=== PATIENT | male | born 1950 | race Caucasian/White ===

== ENCOUNTER 2017-02-12 16:00 | Emergency (ER) | payer BC ==
[2017-02-12 16:53] LABS: Urine Bacteria Absent (Absent); Urine Bilirubin Negative (Negative); Urine Glucose Negative (Negative); Urine Nitrite Negative (Negative)
[2017-02-12] MEDS ORDERED: HYDROmorphone INJ* 1 MG/ML CARPUJECT SYRINGE IV ONE (16:56)
[2017-02-12] MEDS ORDERED: NS 0.9% 1000 ML* 1,000 ML IV ONE (16:56)
[2017-02-12] MEDS ORDERED: Ondansetron INJ* 2 MG/ML VIAL IV ONE (16:56)
[2017-02-12] MEDS ORDERED: Ketorolac INJ* 30 MG/ML 1 ML VIAL IV ONE (16:56)
--- NOTE | 2017-02-12 17:03 | RAD ---
Indication: Left flank pain. CT of the abdomen and pelvis was performed without oral or IV contrast administration. Coronal and sagittal reconstructed images were obtained. Lung bases demonstrate no pleural fluid, nodules or masses. Heart is of normal size without evidence of pericardial effusion. Liver is normal in size. No focal lesions or intrahepatic duct dilatation noted. The common duct is not dilated. The gallbladder is partially contracted with multiple hyperdense lesions consistent with gallstones. The pancreas demonstrates no mass or pancreatic duct dilatation. No adrenal lesions are noted. There is moderate degree of left hydronephrosis and hydroureter. There is calculus in the left distal ureter just adjacent to the ureter ureterovesicular junction measuring up to 4 mm. The right kidney demonstrates no evidence of hydronephrosis or hydroureter. Probable hyperdense cysts noted in the posterior cortex of the left kidney measuring 16 mm. Atherosclerotic aorta is noted. No retroperitoneal or pelvic lymphadenopathy is noted. Diverticulosis without definite evidence of diverticulitis. The colon is filled with stool. The appendix is normal. No hernias are noted. Urinary bladder is nondistended. No pelvic adenopathy is noted. IMPRESSION: LEFT HYDRONEPHROSIS AND HYDROURETER WITH A 4 MM CALCULI IN THE LEFT DISTAL URETER JUST ABOVE THE LEFT URETEROVESICULAR JUNCTION. DIVERTICULOSIS WITHOUT DEFINITE EVIDENCE OF DIVERTICULITIS.
[2017-02-12 17:26] LABS: Hematocrit 43 % (42-52); Hemoglobin 14.3 g/dl (14.0-18.0); Mean Corpuscular HGB Conc 34 g/dl (31-36); Mean Corpuscular Hemoglobin 29 pg (27-31); Mean Corpuscular Volume 86 fL (80-94); Mean Platelet Volume 7 um3 (7.4-10.4); Red Blood Count 4.96 10^6/ul (4.0-5.4); Red Cell Distribution Width 14 % (10.5-15); White Blood Count 9.4 10^3/ul (3.5-10.8)
[2017-02-12 17:44] LABS: Albumin 4.4 g/dL (3.2-5.2); BUN/Creatinine Ratio 16.5 (8-20); C Reactive Protein 2.29 mg/L (< 5.00); Calcium 9.7 mg/dL (8.6-10.3); EGFR African American 77.4 (>60); EGFR Non-African American 60.2 (>60); Globulin 3.1 g/dL (2-4); Potassium 3.3 mmol/L (3.5-5.0); Total Bilirubin 0.7 mg/dL (0.2-1.0); Total Protein 7.5 g/dL (6.4-8.9)
--- NOTE | 2017-02-12 18:17 | ED ---
Angélica Alejandro Edward, scribed for Shane Brannon MD on 02/12/17 at 1621 . GI/ HPI - HPI Summary HPI Summary: 66 y/o male presents to the ED c/o L flank pain radiating to the front of the groin starting two days ago. The pain started as urinary urgency and the need to have a bowel movement. It subsided yesterday morning but came back at night. The pain is present in the ED rated 7/10 at triage. The pain is aggravated with sitting. Denies dysuria. Associated sx: hematuria, states his stool had lots of yellow. - History of Current Complaint Chief Complaint: EDFlankPain Time Seen by Provider: 02/12/17 16:08 Stated Complaint: LEFT FLANK PAIN Hx Obtained From: Patient Onset/Duration: Started Days Ago, Still Present Current Severity: Severe Pain Intensity: 7 Location of Pain: Groin, Flank Associated Signs and Symptoms: Positive: Hematuria, Other: - Stool was yellow. Negative: Dysuria - Allergy/Home Medications Allergies/Adverse Reactions: Allergies Allergy/AdvReac Type Severity Reaction Status Date / Time No Known Allergies Allergy Verified 03/06/13 06:07 PMH/Surg Hx/FS Hx/Imm Hx Previously Healthy: No Endocrine/Hematology History: Denies: Hx Bone Marrow Disease, Hx Diabetes, Hx Sickle Cell Disease, Hx Thyroid Disease, Hx Anemia Cardiovascular History: Reports: Hx Hypertension, Other Cardiovascular Problems/ Disorders - s/p SD: stents 2006 Denies: Hx Angina, Hx Cardiomegaly, Hx Congestive Heart Failure, Hx Coronary Artery Disease, Hx Pacemaker/ICD, Hx Peripheral Vascular Disease, Hx Rheumatic Fever, Hx Valvular Heart Disease Respiratory History: Denies: Hx Asthma, Hx Pulmonary Edema, Hx Pulmonary Embolism, Hx Sleep Apnea , Other Respiratory Problems/Disorders GI History: Denies: Hx Cirrhosis, Hx Crohn's Disease, Hx Gastroesophageal Reflux Disease , Hx Hiatal Hernia, Hx Irritable Bowel, Hx Jaundice, Hx Ulcer, Other GI Disorders History: Denies: Hx Kidney Infection, Hx Kidney Stones, Other Problems/Disorders Musculoskeletal History: Reports: Other Musculoskeletal History - back aches Denies: Hx Arthritis, Hx Bursitis, Hx Tendonitis Sensory History: Denies: Hx Cataracts, Hx Contacts or Glasses, Hx Glaucoma, Hx Hearing Aid Opthamlomology History: Denies: Hx Cataracts, Hx Contacts or Glasses, Hx Glaucoma Neurological History: Denies: Hx Headaches, Hx Migraine, Hx Nerve Disease, Hx Seizures, Other Neuro Impairments/Disorders Psychiatric History: Denies: Hx Anxiety, Hx Depression - Cancer History Hx Chemotherapy: No - Surgical History Surgery Procedure, Year, and Place: 1975 hernia. 2006 cardiac stents Hx Anesthesia Reactions: No - Immunization History Date of Tetanus Vaccine: Pt states he does not know Date of Influenza Vaccine: Pt states never Infectious Disease History: No Infectious Disease History: Denies: Hx Hepatitis, Traveled Outside the [place] in Last 30 Days - Family History Known Family History: Negative: Cardiac Disease - Social History Alcohol Use: None Hx Substance Use: No Substance Use Type: Reports: None Hx Tobacco Use: No Smoking Status (MU): Never Smoked Tobacco Review of Systems Constitutional: Negative Eyes: Negative ENT: Negative Cardiovascular: Negative Respiratory: Negative Gastrointestinal: Other - Stool has "lots of yellow" Positive: flank pain, hematuria. Negative: dysuria Musculoskeletal: Negative Skin: Negative Neurological: Negative Psychological: Normal All Other Systems Reviewed And Are Negative: Yes Physical Exam Triage Information Reviewed: Yes Vital Signs On Initial Exam: Initial Vitals Temp Pulse Resp BP Pulse Ox 98.1 F 84 16 135/89 97 02/12/17 16:03 02/12/17 16:03 02/12/17 16:03 02/12/17 16:03 02/12/17 16:03 Vital Signs Reviewed: Yes Appearance: Positive: Well-Appearing, No Pain Distress Skin: Positive: Warm, Skin Color Reflects Adequate Perfusion, Dry Head/Face: Positive: Normal Head/Face Inspection Eyes: Positive: Normal ENT: Positive: Normal ENT inspection Neck: Positive: Supple, Nontender Respiratory/Lung Sounds: Positive: Clear to Auscultation, Breath Sounds Present Cardiovascular: Positive: RRR Abdomen Description: Positive: Nontender, Soft. Negative: CVA Tenderness (R), CVA Tenderness (L) Bowel Sounds: Positive: Present Musculoskeletal: Positive: Normal Neurological: Positive: Normal Psychiatric: Positive: Normal, Affect/Mood Appropriate Diagnostics - Vital Signs Vital Signs Temp Pulse Resp BP Pulse Ox 02/12/17 16:03 98.1 F 84 16 135/89 97 - Laboratory Lab Results: Lab Results 02/12/17 02/12/17 02/12/17 Range/Units 16:30 16:53 16:53 WBC 9.4 (3.5-10.8) 10^3/ul RBC 4.96 (4.0-5.4) 10^6/ul Hgb 14.3 (14.0-18.0) g/dl Hct 43 (42-52) % MCV 86 (80-94) fL MCH 29 (27-31) pg MCHC 34 (31-36) g/dl RDW 14 (10.5-15) % Plt Count 179 (150-450) 10^3/ul MPV 7 L (7.4-10.4) um3 Neut % (Auto) 53.6 (38-83) % Lymph % (Auto) 32.6 (25-47) % [place] % (Auto) 8.7 (1-9) % Eos % (Auto) 4.5 (0-6) % Baso % (Auto) 0.6 (0-2) % Absolute Neuts (auto) 5.0 (1.5-7.7) 10^3/ul Absolute Lymphs (auto) 3.1 (1.0-4.8) 10^3/ul Absolute Monos (auto) 0.8 (0-0.8) 10^3/ul Absolute Eos (auto) 0.4 (0-0.6) 10^3/ul Absolute Basos (auto) 0.1 (0-0.2) 10^3/ul Absolute Nucleated RBC 0.02 10^3/ul Nucleated RBC % 0.2 Sodium 136 (133-145) mmol/L Potassium 3.3 L (3.5-5.0) mmol/L Chloride 99 L (101-111) mmol/L Carbon Dioxide 31 (22-32) mmol/L Anion Gap 6 (2-11) mmol/L BUN 20 (6-24) mg/dL Creatinine 1.21 H (0.67-1.17) mg/dL Est GFR ( Amer) 77.4 (>60) Est GFR (Non-Af Amer) 60.2 (>60) BUN/Creatinine Ratio 16.5 (8-20) Glucose 129 H (70-100) mg/dL Calcium 9.7 (8.6-10.3) mg/dL Total Bilirubin 0.70 (0.2-1.0) mg/dL AST 20 (13-39) U/L ALT 20 (7-52) U/L Alkaline Phosphatase 56 (34-104) U/L C-Reactive Protein 2.29 (< 5.00) mg/L Total Protein 7.5 (6.4-8.9) g/dL Albumin 4.4 (3.2-5.2) g/dL Globulin 3.1 (2-4) g/dL Albumin/Globulin Ratio 1.4 (1-3) Urine Color Yellow Urine Appearance Clear Urine pH 6.0 (5-9) Ur Specific [employer] 1.024 (1.010-1.030) Urine Protein 2+(100 mg/dl) H (Negative) Urine Ketones Negative (Negative) Urine Blood 2+ H (Negative) Urine Nitrate Negative (Negative) Urine Bilirubin Negative (Negative) Urine Urobilinogen Negative (Negative) Ur Leukocyte Esterase Negative (Negative) Urine WBC (Auto) Trace(0-5/hpf) (Absent) Urine RBC (Auto) 3+(>10/hpf) H (Absent) Ur Squamous Epith Cells Present H (Absent) Calcium Oxalate Crystal Present H (Absent) Urine Bacteria Absent (Absent) Urine Glucose Negative (Negative) Result Diagrams: 02/12/17 16:53 02/12/17 16:53 Lab Statement: Any lab studies that have been ordered have been reviewed, and results considered in the medical decision making process. - CT ABD/PEL CT CT Interpretation: Positive (See Comments) - LEFT HYDRONEPHROSIS AND HYDROURETER WITH A 4 MM CALCULI IN THE LEFT DISTAL URETER JUST ABOVE THE LEFT URETEROVESICULAR JUNCTION. DIVERTICULOSIS WITHOUT DEFINITE EVIDENCE OF DIVERTICULITIS. ED PHYSICIAN AGREES CT Interpretation Completed By: Radiologist GIGU Course/Dx - Course Course Of Treatment: Mr. Amaya came in with several days of left flank pain and was found to have a 4mm left ureteral stone with a negative U/A. - Diagnoses Provider Diagnoses: Kidney stone Discharge - Discharge Plan Condition: Stable Disposition: HOME Patient Education Materials: Kidney Stones (ED) Referrals: Cliff Hernandez MD [Medical Doctor] - 3 Days (PLEASE F/U IN 2-3 DAYS) The documentation as recorded by the Angélica orellana Edward accurately reflects the service I personally performed and the decisions made by , Shane Brannon MD.
[2017-02-12] MEDS ORDERED: oxyCODONE/Acetamin 5/325 MG* TAB PO ONE (18:24)
[2017-02-12] MEDS ORDERED: Ondansetron ODT TAB* 4 MG PO ONE (18:24)
[2017-02-12 18:42] VITALS: BP 106/35
== END 2017-02-12 18:41 | disposition home or self-care (01) ==
LOC: ED 16:00
DX: N20.0 Calculus of kidney (principal); R10.84 Generalized abdominal pain; R31.9 Hematuria, unspecified
CPT/HCPCS: 36415; 74176; 80053; 81003; 81015; 85025; 86140; 96374; 96375; 99282; A9270-GY; J1170; J1885; J2405

== ENCOUNTER 2017-07-16 19:03 | Emergency (ER) | payer BC ==
[2017-07-16] MEDS ORDERED: Morphine INJ* 10 MG/ML 1 ML CARPUJECT IV ONE (19:30)
--- NOTE | 2017-07-16 20:05 | RAD ---
HISTORY: Fall, left shoulder injury COMPARISONS: None VIEWS: 2, frontal and outlet views of left shoulder FINDINGS: BONE DENSITY: Normal. BONES: There is a Hill-Sachs deformity of the humeral head. JOINTS: There is no arthropathy. ALIGNMENT: There is anterior-inferior dislocation of the humerus aspect of the glenoid fossa. SOFT TISSUES: Unremarkable. OTHER FINDINGS: None. IMPRESSION: LEFT SHOULDER DISLOCATION WITH HILL-SACHS FRACTURE
[2017-07-16] MEDS ORDERED: NS 0.9% 500 ML* 500 ML IV ONE (20:17)
[2017-07-16] MEDS ORDERED: Midazolam* 1 MG/ML 5 ML VIAL (5 MG) IV ONE (20:17)
[2017-07-16] MEDS ORDERED: fentaNYL* 50 MCG/ML 2 ML VIAL (100 MCG VIAL) IV SLOW PU ONE (20:17)
[2017-07-16] MEDS ORDERED: Midazolam* 1 MG/ML 10 ML VIAL (10 MG) ONE (20:24)
[2017-07-16] MEDS ORDERED: Midazolam* 1 MG/ML 10 ML VIAL (10 MG) IV ONE (20:24)
--- NOTE | 2017-07-16 21:17 | RAD ---
HISTORY: Post reduction COMPARISONS: March 15, 2018 at 8:03 PM VIEWS: 2, frontal and lateral views of the left shoulder at 9:02 PM FINDINGS: BONE DENSITY: Normal. BONES: Again noted is a Hill-Sachs deformity of the humeral head. JOINTS: There is mild osteoarthritis of the AC joint. ALIGNMENT: There is been interval reduction of the humeral head dislocation. SOFT TISSUES: Unremarkable. OTHER FINDINGS: The lung volumes are low. There is diffuse reticular pattern of opacification. IMPRESSION: 1. THERE HAS BEEN INTERVAL REDUCTION OF THE LEFT SHOULDER DISLOCATION. 2. AGAIN NOTED IS A HILL-SACHS FRACTURE OF THE HUMERAL HEAD. 3. PROMINENT INTERSTITIAL MARKINGS SUGGESTIVE OF PULMONARY INTERSTITIAL EDEMA IN THE CORRECT CLINICAL SETTING.
[2017-07-16 22:51] VITALS: BP 113/68
--- NOTE | 2017-07-17 22:41 | ED ---
Javier Alejandro Stephanie, scribed for Oniel Orozco MD on 07/16/17 at 1953 . Upper Extremity Pain - HPI Summary HPI Summary: The pt is a 66 y/o M presenting to the Ed with c/o L shoulder pain that occurred at 19:16 today s/p slip on ice. The pt reports head trauma. The pt believes he dislocated his L shoulder. He denies tingling and numbness in his L arm. 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 - Mechanism Of Injury: Fall From Height Of: Onset/Duration: Started Minutes Ago Timing: Constant Pain Location: Shoulder - L Aggravating Factor(s): Movement Alleviating Factor(s): Nothing - Allergies/Home Medications Allergies/Adverse Reactions: Allergies Allergy/AdvReac Type Severity Reaction Status Date / Time No Known Allergies Allergy Verified 03/06/13 06:07 PMH/Surg Hx/FS Hx/Imm Hx Endocrine/Hematology History: Denies: Hx Bone Marrow Disease, Hx Diabetes, Hx Sickle Cell Disease, Hx Thyroid Disease, Hx Anemia Cardiovascular History: Reports: Hx Hypertension, Other Cardiovascular Problems/ Disorders - s/p PR: stents 2006 Denies: Hx Angina, Hx Cardiomegaly, Hx Congestive Heart Failure, Hx Coronary Artery Disease, Hx Pacemaker/ICD, Hx Peripheral Vascular Disease, Hx Rheumatic Fever, Hx Valvular Heart Disease Respiratory History: Denies: Hx Asthma, Hx Pulmonary Edema, Hx Pulmonary Embolism, Hx Sleep Apnea , Other Respiratory Problems/Disorders GI History: Denies: Hx Cirrhosis, Hx Crohn's Disease, Hx Gastroesophageal Reflux Disease , Hx Hiatal Hernia, Hx Irritable Bowel, Hx Jaundice, Hx Ulcer, Other GI Disorders History: Denies: Hx Kidney Infection, Hx Kidney Stones, Other Problems/Disorders Musculoskeletal History: Reports: Other Musculoskeletal History - back aches Denies: Hx Arthritis, Hx Bursitis, Hx Tendonitis Sensory History: Denies: Hx Cataracts, Hx Contacts or Glasses, Hx Glaucoma, Hx Hearing Aid Opthamlomology History: Denies: Hx Cataracts, Hx Contacts or Glasses, Hx Glaucoma Neurological History: Denies: Hx Headaches, Hx Migraine, Hx Nerve Disease, Hx Seizures, Other Neuro Impairments/Disorders Psychiatric History: Denies: Hx Anxiety, Hx Depression - Cancer History Hx Chemotherapy: No - Surgical History Surgery Procedure, Year, and Place: 1975 hernia. 2007 cardiac stents Hx Anesthesia Reactions: No - Immunization History Date of Tetanus Vaccine: Pt states he does not know Date of Influenza Vaccine: Pt states never Infectious Disease History: No Infectious Disease History: Denies: Hx Hepatitis, Traveled Outside the [place] in Last 30 Days - Family History Known Family History: Negative: Cardiac Disease - Social History Occupation: Employed Full-time Lives: With Family Alcohol Use: None Hx Substance Use: No Substance Use Type: Reports: None Hx Tobacco Use: No Smoking Status (MU): Never Smoked Tobacco Review of Systems Negative: Fever, Chills Negative: Erythema Negative: Sore Throat Negative: Chest Pain Negative: Shortness Of Breath, Cough Negative: Abdominal Pain, Vomiting, Nausea Negative: dysuria, hematuria Positive: Other - L shoulder pain. Negative: Myalgia, Edema Negative: Rash Neurological: Other - Negative: dizziness All Other Systems Reviewed And Are Negative: Yes Physical Exam - Summary Physical Exam Summary: Constitutional: Well-developed, Well-nourished, Alert. (-) Distressed Skin: Warm, Dry HENT: Normocephalic; Atraumatic Eyes: Conjunctiva normal Neck: Musculoskeletal ROM normal neck. (-) JVD, (-) Stridor, (-) Tracheal deviation Cardio: Rhythm regular, rate normal, Heart sounds normal; Intact distal pulses; The pedal pulses are 2+ and symmetric. Radial pulses are 2+ and symmetric. (-) Murmur Pulmonary/Chest wall: Effort normal. (-) Respiratory distress, (-) Wheezes, (-) Rales Abd: Soft, (-) Tenderness, (-) Distension, (-) Guarding, (-) Rebound Musculoskeletal: (-) Edema, loss of deltoid prominence in L arm, licensed appraiser strength intact. Distal sensation intact, no bony tenderness Lymph: (-) Cervical adenopathy Neuro: Alert, Oriented x3 Psych: Mood and affect Normal Triage Information Reviewed: Yes Vital Signs On Initial Exam: Initial Vitals Temp Pulse Resp BP Pulse Ox 97.3 F 81 18 116/71 95 07/16/17 19:14 07/16/17 19:14 07/16/17 19:14 07/16/17 19:14 07/16/17 19:14 Vital Signs Reviewed: Yes Diagnostics - Vital Signs Vital Signs Temp Pulse Resp BP Pulse Ox 07/16/17 19:36 20 07/16/17 19:14 97.3 F 81 18 116/71 95 - Laboratory Lab Statement: Any lab studies that have been ordered have been reviewed, and results considered in the medical decision making process. - Radiology Shoulder XRAY Xray Interpretation: No Acute Changes Radiology Interpretation Completed By: Radiologist - LEFT SHOULDER DISLOCATION WITH HILL-SACHS FRACTURE Course/Dx - Course Course Of Treatment: ED physician discussed the patients case with orthopedics on-call, Dr. Perez who recommended standard reduction. - Diagnoses Provider Diagnoses: Shoulder dislocation, Hill-Sachs fracture Discharge - Discharge Plan Condition: Stable Disposition: HOME Patient Education Materials: Shoulder Dislocation (ED) Referrals: Jonh Street MD [Primary Care Provider] - Naseem Espinoza MD [Medical Doctor] - 3 Days Additional Instructions: RETURN TO THE EMERGENCY DEPARTMENT FOR CHANGING OR WORSENING SYMPTOMS Do not use L arm until cleared by orthopedics. Take Tylenol for pain. The documentation as recorded by the Javier orellana Stephanie accurately reflects the service I personally performed and the decisions made by , Oniel Orozco MD.
== END 2017-07-16 23:04 | disposition home or self-care (01) ==
LOC: ED 19:03
DX: S42.292A Other displaced fracture of upper end of left humerus, initial encounter for closed fracture (principal); S43.005A Unspecified dislocation of left shoulder joint, initial encounter; M25.512 Pain in left shoulder; W00.0XXA Fall on same level due to ice and snow, initial encounter; Y92.9 Unspecified place or not applicable; Z86.79 Personal history of other diseases of the circulatory system
CPT/HCPCS: 96374; 96375; 99285; J2250; J2270; J3010